=== PATIENT | male | born 1990 | race Caucasian/White ===

== ENCOUNTER 2018-07-04 14:22 | Emergency (ER) | payer SELFPAY ==
[2018-07-04] MEDS ORDERED: Adacel (T-DAP) 0.5 ML VIAL ONE (16:34)
== END 2018-07-04 16:48 | disposition home or self-care (01) ==
LOC: ERS 14:22
DX: L02.211 Cutaneous abscess of abdominal wall (principal); F17.210 Nicotine dependence, cigarettes, uncomplicated
CPT/HCPCS: 10060; 87070; 87077; 87186; 87205; 90471; 90715; 99406

== ENCOUNTER 2018-07-06 17:13 | Emergency (ER) | payer SELFPAY | END 2018-07-06 19:37 | disposition home or self-care (01) | LOC: ERS 17:13 | DX: Z48.817 Encounter for surgical aftercare following surgery on the skin and subcutaneous tissue (principal); Z48.01 Encounter for change or removal of surgical wound dressing; L02.91 Cutaneous abscess, unspecified; G40.909 Epilepsy, unspecified, not intractable, without status epilepticus; F17.210 Nicotine dependence, cigarettes, uncomplicated | CPT/HCPCS: 99283 ==

== ENCOUNTER 2020-12-12 12:32 | Emergency (ER) | payer SELFPAY | END 2020-12-12 13:22 | disposition left against medical advice (07) | LOC: ERS 12:32 | DX: Z53.21 Procedure and treatment not carried out due to patient leaving prior to being seen by health care provider (principal) ==

== ENCOUNTER 2021-02-12 06:55 | Emergency (ER) | payer SELFPAY | END 2021-02-12 08:35 | disposition home or self-care (01) | LOC: ERS 06:55 | DX: M25.562 Pain in left knee (principal); F17.210 Nicotine dependence, cigarettes, uncomplicated; G40.909 Epilepsy, unspecified, not intractable, without status epilepticus; X50.0XXA Overexertion from strenuous movement or load, initial encounter ==

== ENCOUNTER 2021-03-31 17:33 | Emergency (ER) | payer SELFPAY ==
[2021-03-31] MEDS ORDERED: Ondansetron ODT 4 MG TAB ONE (18:46)
== END 2021-03-31 19:48 | disposition home or self-care (01) ==
LOC: ERS 17:33
DX: B34.9 Viral infection, unspecified (principal); G40.909 Epilepsy, unspecified, not intractable, without status epilepticus; F17.210 Nicotine dependence, cigarettes, uncomplicated
CPT/HCPCS: 71046; Q0162

== ENCOUNTER 2021-12-10 13:31 | Emergency (ER) | payer SELFPAY ==
[2021-12-10 18:47] LABS: SARS-CoV-2 PCR by NAA Not Detected (NotDetected)
== END 2021-12-10 14:19 | disposition home or self-care (01) ==
LOC: ERS 13:31
DX: R05.9 Cough, unspecified (principal); Z20.822 Contact with and (suspected) exposure to COVID-19
CPT/HCPCS: 99283; U0003; U0005